=== PATIENT | male | born 1970 | race Caucasian/White ===

== ENCOUNTER → 2018-03-08 | Outpatient (CLI) | payer OTHER, BC ==
[~2018-03-08] MED LIST: NEXIUM 20MG20 MG PO; NORCO 325 MG-51 TAB PO; PROAIR HFA0.09 MG/AC IH
== END ==
LOC: COL.RAD 07:56
DX: K21.9 Gastro-esophageal reflux disease without esophagitis (principal)
CPT/HCPCS: A9541